=== PATIENT | male | born 1975 | race Caucasian/White ===

== ENCOUNTER 2018-07-13 12:45 | Emergency (ER) | payer BC ==
[~2018-07-13] VITALS: Ht 170.2 cm; Wt 78.5 kg
--- NOTE | ~2018-07-13 | EKG ---
[address] [place] [address] ELECTROCARDIOGRAM REPORT Name: YUE ALVARADO Room #: DEP SARAH Gilliland#: [id number] Admission: 07/13/18 Attend Phys: Discharge: 07/13/18 Date of : 75 Report #: [id number] THIS REPORT FOR: //name// [facility] ED Test Date: 2018-07-13 Test Time: 12:53:38 Pat Name: YUE ALVARADO Department: Room: Gender: Safety Physician: : [id number] Requested By: Jordana Cardenas Order Number: [id number] MD: Humberto Holt Measurements Intervals [place] Rate: 108 P: 63 GA: 137 QRS: 34 QRSD: 86 T: 46 QT: 333 QTc: 447 Interpretive Statements Sinus tachycardia Otherwise normal tracing No previous ECG available for comparison Electronically Signed On 07-14-2018 8:47:44 CDT by Humberto Holt [email or web address] <ELECTRONICALLY SIGNED> By: Humberto Holt MD, [facility] 07/14/18 [id number] Humberto Holt MD, FACC /EPI
[2018-07-13 13:20] LABS: ABSOLUTE NEUTROPHILS 5.5 thou/uL (1.4-8.2); BASOPHILS 0.3 % (0.0-2.0); EOSINOPHILS 3.7 % (0.0-3.0); HEMATOCRIT 44.7 % (42.0-52.0); HEMOGLOBIN 15.3 gm/dL (14.0-18.0); LYMPHOCYTES 24.2 % (24.0-44.0); MCH 29.6 pg (26.0-34.0); MCHC 34.3 g/dL (28.0-37.0); MCV 86.2 fL (80.0-100.0); MONOCYTES 8.5 % (1.0-8.0); PLATELET COUNT 288 thou/uL (150-400); POLYS 63.3 % (36.0-66.0); RBC 5.18 mil/uL (4.50-6.00); RDW 13.4 % (10.5-14.5); WBC 8.7 thou/uL (4.0-11.0)
[2018-07-13 13:25] LABS: ANION GAP 11 mmol/L (7-16); BUN 8 mg/dL (7-18); CALCIUM 9.2 mg/dL (8.5-10.1); CHLORIDE 102 mmol/L (98-107); CO2 25 mmol/L (21-32); CREATININE 1.2 mg/dL (0.7-1.3); GLUCOSE 115 mg/dL (74-106); POTASSIUM 3.4 mmol/L (3.5-5.1); SODIUM 138 mmol/L (136-145)
[2018-07-13 13:36] LABS: TROPONIN-I <0.06 ng/mL (<0.06)
[2018-07-13 14:57] VITALS: BP 122/79
== END 2018-07-13 15:00 | disposition home or self-care (01) ==
LOC: ER 12:45
PROVIDERS: Nurse Practitioner Family
DX: R42 Dizziness and giddiness (principal); R10.13 Epigastric pain